=== PATIENT | male | born 1980 | race Caucasian/White ===

== ENCOUNTER 2022-05-17 11:49 | Day surgery (SDC) | payer MEDICAID ==
[~2022-05-17] VITALS: Ht 167.6 cm; Wt 97.7 kg
[~2022-05-17 11:49] MED LIST: APRE30TA2 PO; BUPR1TAB32 SL; ESCI-8 PO; HYDR10SY17 PO; SODIUM CHLORIDE 0.9% 1,000 ML IV ONE; SODIUM CHLORIDE 0.9% 1,000 ML ONE
[2022-05-17] MEDS ORDERED: LIDOCAINE/PF 2% 5 ML VIAL IM ONE (11:50)
[2022-05-17 12:05] LABS: COVID AG,FIA SOURCE NASAL SWAB
== END 2022-05-17 14:50 | disposition home or self-care (01) ==
LOC: SURGERY 11:49
PROVIDERS: ATTEND Internal Medicine Gastroenterology
DX: D12.8 Benign neoplasm of rectum (principal); K64.4 Residual hemorrhoidal skin tags; K64.1 Second degree hemorrhoids; I10 Essential (primary) hypertension; Z79.899 Other long term (current) drug therapy; Z98.890 Other specified postprocedural states
CPT/HCPCS: 45385; 87426; C9803; C1769; J3490; J7030